=== PATIENT | male | born 1950 | race Caucasian/White ===

== ENCOUNTER → 2017-08-06 09:51 | Outpatient (CLI) | payer MEDICARE, OTHER, SELFPAY ==
[2017-08-06 10:28] LABS: Hematocrit 46.8 % (40-54); Hemoglobin 15.9 g/dl (13.0-16.5); Mean Corpuscular Hgb 31.4 pg (27.0-32.0); Mean Corpuscular Volume 92.3 fL (80-94); Mean Platelet Vol. 10.4 fl (6.2-12.0); Platelet Count 246 K/mm3 (150-450); RBC Distribution Width SD 43.1 fl (35.1-43.9); Red Blood Count 5.07 M/mm3 (4.6-6.2); Scan Indicated on CBC? Y/N NO; White Blood Count 6.9 K/mm3 (4.4-11.0)
[2017-08-06 10:41] LABS: Hemoglobin A1c 7.8 % (4.2-6.3)
[2017-08-06 10:51] LABS: Albumin, Serum 3.3 g/dL (3.2-5.0); BUN 24 mg/dL (7-18); BUN/Creat Ratio 13.8 RATIO (10-20); Calcium,Total 9.2 mg/dL (8.5-10.1); Chloride 103 mmol/L (98-107); Creatinine, Serum 1.74 mg/dL (0.70-1.30); EST Glomerular Filtration Rate 42 mL/min (>60); Est Glom Filt Rate - Afr Amer 50 mL/min (>60); Glucose 224 mg/dL (74-106); Magnesium 2.1 mg/dL (1.6-2.6); Phosphorus 2.4 mg/dL (2.5-4.9); Potassium 4.4 mmol/L (3.5-5.1); Sodium Level 140 mmol/L (136-145)
[2017-08-06 11:09] LABS: Microalbumin:Creatinine Ratio 880.4 mg/g CRE (<30 mg/g CRE)
[2017-08-07 10:04] LABS: PTHIN 50.9 pg/mL (18.4-80.1)
== END ==
PROVIDERS: Visit Provider Internal Medicine Nephrology
DX: E11.21 Type 2 diabetes mellitus with diabetic nephropathy (principal); N18.3 Chronic kidney disease, stage 3 (moderate); N25.81 Secondary hyperparathyroidism of renal origin
CPT/HCPCS: 36415; 80069; 82043; 82306; 82570; 83036; 83735; 83970; 85027

== ENCOUNTER → 2017-12-28 09:47 | Outpatient (CLI) | payer MEDICARE, OTHER, SELFPAY ==
[2017-12-28 10:55] LABS: Hematocrit 47.1 % (40-54); Hemoglobin 15.3 g/dl (13.0-16.5); Mean Corp Hgb Conc 32.5 g/gl (32-36); Mean Corpuscular Volume 92.4 fL (80-94); Mean Platelet Vol. 10.5 fl (6.2-12.0); Platelet Count 172 K/mm3 (150-450); RBC Distribution Width CV 13.4 % (11.6-14.6); RBC Distribution Width SD 45.2 fl (35.1-43.9); White Blood Count 5.3 K/mm3 (4.4-11.0)
[2017-12-28 10:57] LABS: Scan Indicated on CBC? Y/N NO
[2017-12-28 12:54] LABS: Albumin, Serum 3.3 g/dL (3.2-5.0); BUN 26 mg/dL (7-18); Calcium,Total 8.9 mg/dL (8.5-10.1); Chloride 105 mmol/L (98-107); Creatinine, Serum 1.86 mg/dL (0.70-1.30); EST Glomerular Filtration Rate 39 mL/min (>60); Est Glom Filt Rate - Afr Amer 47 mL/min (>60); Glucose 122 mg/dL (74-106); Potassium 4.2 mmol/L (3.5-5.1); Sodium Level 142 mmol/L (136-145)
[2017-12-28 13:31] LABS: Protein, Urine (Random) 86.7 mg/dL (<11.9); Protein:Creat Ratio 423 mg/g CRE (0-200)
== END ==
PROVIDERS: Visit Provider Internal Medicine Nephrology
DX: N18.3 Chronic kidney disease, stage 3 (moderate) (principal)
CPT/HCPCS: 36415; 80069; 82043; 82570; 84156; 85027

== ENCOUNTER → 2018-06-28 09:33 | Outpatient (CLI) | payer MEDICARE, OTHER, SELFPAY ==
[2018-06-28 10:39] LABS: PTHIN 78.4 pg/mL (18.4-80.1)
[2018-06-28 10:44] LABS: Protein, Urine (Random) 95.1 mg/dL (<11.9); Protein:Creat Ratio 1388 mg/g CRE (0-200)
[2018-06-28 10:56] LABS: Vitamin D,25 Hydroxy 18.1 ng/mL (29.95-100.01)
[2018-06-28 11:00] LABS: Albumin, Serum 3.4 g/dL (3.2-5.0); BUN 31 mg/dL (7-18); BUN/Creat Ratio 15.5 RATIO (10-20); Calcium,Total 8.9 mg/dL (8.5-10.1); Chloride 104 mmol/L (98-107); EST Glomerular Filtration Rate 35 mL/min (>60); Est Glom Filt Rate - Afr Amer 43 mL/min (>60); Glucose 251 mg/dL (74-106); Phosphorus 2.2 mg/dL (2.5-4.9); Potassium 4.4 mmol/L (3.5-5.1); Sodium Level 136 mmol/L (136-145)
[2018-06-28 11:10] LABS: Hematocrit 49.4 % (40-54); Hemoglobin 16.7 g/dl (13.0-16.5); Mean Corp Hgb Conc 33.8 g/gl (32-36); Mean Corpuscular Hgb 30.6 pg (27.0-32.0); Mean Corpuscular Volume 90.6 fL (80-94); Mean Platelet Vol. 10.6 fl (6.2-12.0); Platelet Count 173 K/mm3 (150-450); RBC Distribution Width CV 12.8 % (11.6-14.6); Red Blood Count 5.45 M/mm3 (4.6-6.2); White Blood Count 5.1 K/mm3 (4.4-11.0)
[2018-06-28 11:12] LABS: Scan Indicated on CBC? Y/N NO
== END ==
PROVIDERS: Referring Provider Internal Medicine Nephrology; Visit Provider Internal Medicine Nephrology
DX: N18.3 Chronic kidney disease, stage 3 (moderate) (principal); N25.81 Secondary hyperparathyroidism of renal origin
CPT/HCPCS: 36415; 80069; 82306; 82570; 83970; 84156; 85027

== ENCOUNTER 2018-08-27 14:59 | Emergency (ER) | payer MEDICARE, OTHER, SELFPAY ==
[2018-08-27 15:00] VITALS: BP 216/98; PULSE 85; RESP 16; TEMP 36.4; O2SAT 97; BMI 43.0
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
--- NOTE | 2018-08-27 15:22 | ED.DEP ---
ED Disposition - Plan for ED Patient: Instructions: ED Burn Thermal D 1st 2nd Dressing Prescriptions: Bacitracin 30 gm TP TID #1 oint...g. [facility] [[facility] - [facility] ([facility] [GROUP OF PHYSICIANS] - Additional Instructions: Call Burn Center for appointment at
--- NOTE | 2018-08-27 15:28 | ED.DEP ---
ED Disposition - Plan for ED Patient: Instructions: ED Burn Thermal D 1st 2nd Dressing Prescriptions: Cephalexin [Keflex] 500 mg PO Q6 #28 cap Bacitracin 30 gm TP TID #1 oint...g. Referrals: [facility] ([facility] [GROUP OF PHYSICIANS] - [facility],[place] [Primary Care Provider] - Additional Instructions: Call Burn Center for appointment at
--- NOTE | 2018-08-27 15:29 | DCINST.ED_ITS ---
ED Disposition - Plan for ED Patient: Instructions: ED Burn Thermal D 1st 2nd Dressing Prescriptions: Cephalexin [Keflex] 500 mg PO Q6 #28 cap Bacitracin 30 gm TP TID #1 oint...g. Referrals: [facility] Center ([facility]),[facility] [GROUP OF PHYSICIANS] - [facility],[place] [Primary Care Provider] - Additional Instructions: Call Burn Center for appointment at
[2018-08-27] MEDS: Cephalexin 250 MG Capsule 500 MG PO (15:33)
[2018-08-27] MEDS: Diphth,Pertuss(Acell),Tet Vac 0.5 ML Vial IM (15:33)
== END 2018-08-27 15:35 | disposition home or self-care (01) ==
LOC: ED 15:27
PROVIDERS: Emergency Provider Emergency Medicine
DX: T20.29XA Burn of second degree of multiple sites of head, face, and neck, initial encounter (principal); T31.0 Burns involving less than 10% of body surface; W40.1XXA Explosion of explosive gases, initial encounter; Y93.89 Activity, other specified; Y92.9 Unspecified place or not applicable; I10 Essential (primary) hypertension; E11.9 Type 2 diabetes mellitus without complications; Z79.4 Long term (current) use of insulin; Z79.899 Other long term (current) drug therapy
CPT/HCPCS: 90471; 90715; 99282

== ENCOUNTER 2018-09-21 12:34 | Emergency (ER) | payer MEDICARE, OTHER, SELFPAY ==
[2018-09-21 12:35] VITALS: BP 169/86; PULSE 103; RESP 16; TEMP 36.7; O2SAT 94; BMI 44.3
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
--- NOTE | 2018-09-21 16:40 | ED.DEP ---
ED Disposition - Plan for ED Patient: Disposition: Home or Assisted Living Instructions: ED Laceration Ext Sutr Stap Tape Referrals: [facility] [Primary Care Provider] - 10-14 Days suture removal Additional Instructions: Elevate the leg to decrease swelling. Keep the laceration clean. May shower but dried off thoroughly when done. Clean at least twice daily with soap and water or peroxide water. Apply antibiotic ointment twice daily. Watch for any signs of infection such as pus, redness, fever or red streaks. Suture removal in 10 to 14 days. Follow-up with wound care
[2018-09-21 16:53] VITALS: BP 165/81; PULSE 83; RESP 16; O2SAT 97
== END 2018-09-21 16:56 | disposition home or self-care (01) ==
PROVIDERS: Emergency Provider Emergency Medicine
DX: S81.811A Laceration without foreign body, right lower leg, initial encounter (principal); W45.8XXA Other foreign body or object entering through skin, initial encounter; Y93.9 Activity, unspecified; Y92.79 Other farm location as the place of occurrence of the external cause; Y99.9 Unspecified external cause status; I89.0 Lymphedema, not elsewhere classified; R60.0 Localized edema; E11.9 Type 2 diabetes mellitus without complications; I10 Essential (primary) hypertension; N28.9 Disorder of kidney and ureter, unspecified; Z79.01 Long term (current) use of anticoagulants; Z79.4 Long term (current) use of insulin; Z79.899 Other long term (current) drug therapy; Z86.718 Personal history of other venous thrombosis and embolism
CPT/HCPCS: 12004; 99283

== ENCOUNTER → 2018-12-09 08:12 | Outpatient (CLI) | payer MEDICARE, OTHER, SELFPAY ==
[2018-12-09 09:49] LABS: Hemoglobin 13.6 g/dL (13.0-16.5); Mean Corp Hgb Conc 33.2 g/dL (32-36); Mean Corpuscular Hgb 30.5 pg (27.0-32.0); Mean Corpuscular Volume 91.9 fL (80-94); Mean Platelet Vol. 10.4 fl (6.2-12.0); Platelet Count 213 K/mm3 (150-450); RBC Distribution Width CV 12.6 % (11.6-14.6); RBC Distribution Width SD 42.3 fl (35.1-43.9); Red Blood Count 4.46 M/mm3 (4.6-6.2); White Blood Count 5.6 K/mm3 (4.4-11.0)
[2018-12-09 10:02] LABS: Protein:Creat Ratio 418 mg/g CRE (0-200)
[2018-12-09 10:24] LABS: Albumin, Serum 3.5 g/dL (3.2-5.0); BUN 33 mg/dL (7-18); BUN/Creat Ratio 20.1 RATIO (10-20); Calcium,Total 9.4 mg/dL (8.5-10.1); Chloride 105 mmol/L (98-107); Creatinine, Serum 1.64 mg/dL (0.70-1.30); EST Glomerular Filtration Rate 44 mL/min (>60); Est Glom Filt Rate - Afr Amer 54 mL/min (>60); Glucose 114 mg/dL (74-106); Phosphorus 3.5 mg/dL (2.5-4.9); Potassium 4.2 mmol/L (3.5-5.1); Sodium Level 140 mmol/L (136-145)
[2018-12-09 10:39] LABS: PTHIN 58.1 pg/mL (18.4-80.1); Vitamin D,25 Hydroxy 31.6 ng/mL (29.95-100.01)
== END ==
PROVIDERS: Referring Provider Internal Medicine Nephrology; Visit Provider Internal Medicine Nephrology
DX: N18.3 Chronic kidney disease, stage 3 (moderate) (principal)
CPT/HCPCS: 36415; 80069; 82306; 82570; 83970; 84156; 85027

== ENCOUNTER → 2019-07-07 08:22 | Outpatient (CLI) | payer MEDICARE, OTHER, SELFPAY ==
[2019-07-07 09:13] LABS: Hemoglobin 15.4 g/dL (13.0-16.5); Mean Corp Hgb Conc 32.1 g/dL (32-36); Mean Corpuscular Hgb 29.6 pg (27.0-32.0); Mean Corpuscular Volume 92.1 fL (80-94); Mean Platelet Vol. 9.9 fl (6.2-12.0); Platelet Count 201 K/mm3 (150-450); RBC Distribution Width CV 12.8 % (11.6-14.6); RBC Distribution Width SD 42.8 fl (35.1-43.9); Red Blood Count 5.21 M/mm3 (4.6-6.2); White Blood Count 6.5 K/mm3 (4.4-11.0)
[2019-07-07 09:32] LABS: Protein, Urine (Random) < 6.0 mg/dL (<11.9)
[2019-07-07 09:33] LABS: Albumin, Serum 3.7 g/dL (3.2-5.0); BUN 31 mg/dL (7-18); Calcium,Total 9.5 mg/dL (8.5-10.1); Chloride 107 mmol/L (98-107); Creatinine, Serum 2.21 mg/dL (0.70-1.30); EST Glomerular Filtration Rate 31 mL/min (>60); Est Glom Filt Rate - Afr Amer 38 mL/min (>60); Glucose 181 mg/dL (74-106); Phosphorus 3.6 mg/dL (2.5-4.9); Potassium 4.6 mmol/L (3.5-5.1); Sodium Level 141 mmol/L (136-145)
[2019-07-07 09:38] LABS: Vitamin D,25 Hydroxy 27.9 ng/mL
== END ==
PROVIDERS: Referring Provider Internal Medicine Nephrology; Visit Provider Internal Medicine Nephrology
DX: N18.3 Chronic kidney disease, stage 3 (moderate) (principal); N25.81 Secondary hyperparathyroidism of renal origin
CPT/HCPCS: 36415; 80069; 82306; 82570; 83970; 84156; 85027

== ENCOUNTER → 2020-01-12 09:03 | Outpatient (CLI) | payer MEDICARE, OTHER, SELFPAY ==
[2020-01-12 10:03] LABS: Anion Gap 3 (5-15); BUN 33 mg/dL (7-18); BUN/Creat Ratio 16.6 RATIO (10-20); Calcium,Total 9.1 mg/dL (8.5-10.1); Chloride 108 mmol/L (98-107); Creatinine, Serum 1.99 mg/dL (0.70-1.30); EST Glomerular Filtration Rate 35 mL/min (>60); Est Glom Filt Rate - Afr Amer 43 mL/min (>60); Glucose 125 mg/dL (74-106); Potassium 4.5 mmol/L (3.5-5.1); Sodium Level 140 mmol/L (136-145)
== END ==
PROVIDERS: Referring Provider Internal Medicine Nephrology; Visit Provider Internal Medicine Nephrology
DX: N18.3 Chronic kidney disease, stage 3 (moderate) (principal)
CPT/HCPCS: 36415; 80048

== ENCOUNTER → 2020-07-06 11:58 | Outpatient (CLI) | payer MEDICARE, OTHER, SELFPAY ==
[2020-07-06 12:41] LABS: Protein, Urine (Random) 31.4 mg/dL (<11.9); Protein:Creat Ratio 957 mg/g CRE (0-200)
[2020-07-06 12:55] LABS: Anion Gap 6 (5-15); BUN 29 mg/dL (7-18); BUN/Creat Ratio 17.5 RATIO (10-20); Calcium,Total 9.6 mg/dL (8.5-10.1); Chloride 104 mmol/L (98-107); Creatinine, Serum 1.66 mg/dL (0.70-1.30); EST Glomerular Filtration Rate 44 mL/min (>60); Est Glom Filt Rate - Afr Amer 53 mL/min (>60); Glucose 132 mg/dL (74-106); Potassium 4.3 mmol/L (3.5-5.1); Sodium Level 139 mmol/L (136-145)
== END ==
PROVIDERS: Referring Provider Internal Medicine Nephrology; Visit Provider Internal Medicine Nephrology
DX: N18.30 Chronic kidney disease, stage 3 unspecified (principal)
CPT/HCPCS: 36415; 80048; 82570; 84156

== ENCOUNTER 2020-12-09 18:47 | Emergency (ER) | payer OTHER, MEDICARE, SELFPAY ==
[2020-12-09 18:48] VITALS: BP 192/88; PULSE 90; RESP 20; TEMP 37.2; O2SAT 96; BMI 41.1
--- NOTE | 2020-12-09 19:58 | EDS_ITS ---
HPI History of Present Illness Chief Complaint: Fatigue Informant: patient Narrative Narrative: Patient is a 70-year-old male who presents to the emergency department for sinus pressure and stuffy nose that he cannot breathe. He states that this is been a chronic issue for him over the past 2 months. He has been seeing his family doctor for this. He is on multiple medications for this. He does take [id number] sinus medications. He has been using oxymetazoline nasal spray. He states that this does temporarily help with the symptoms come right back. He has not been on any antibiotics for this. Denies fevers or chills. No chest pain or shortness of breath. He states that he has been feeling very fatigued because he is not able to sleep at night due to the congestion. He has been taking melatonin as well as Benadryl. This does not really help. Patient has not seen an ENT doctor for this. He denies any ear pain or sore throat. He states that the sinuses were very painful at the initial onset of this but has since become less painful. He is also complaining of elevated blood pressure intermittently. He states when he takes his medications his blood pressure does go down though.. [facility] Medical History (Updated 12/09/20 @ 19:[address] Arturo Pratt, ) DVT (deep venous thrombosis) Hypertension Home Medications Lantus Solostar U-100 Insulin 77 units SUBCUT QHS 11/03/13 [History Last Taken 12/20/13] insulin lispro [Humalog KwikPen Insulin] 20 units SQ ACHS 11/03/13 [History Last Taken 12/21/13 08:00] tamsulosin 0.4 mg PO QHS 11/03/13 [History Last Taken 12/20/13] amlodipine 10 mg PO DAILY 12/09/20 [History Last Taken Unknown] amoxicillin-pot clavulanate [Augmentin] 1 tab PO BID 10 Days #20 tab 12/09/20 [Rx Last Taken Unknown] carvedilol 25 mg PO Q12H 12/09/20 [History Last Taken Unknown] cholecalciferol (vitamin D3) [Vitamin D3] 50 mcg PO DAILY 12/09/20 [History Last Taken Unknown] clonidine HCl 0.2 mg PO BID 12/09/20 [History Last Taken Unknown] ezetimibe 10 mg PO DAILY 12/09/20 [History Last Taken Unknown] fluticasone propionate 1 spray INTRANASAL Q12H 12/09/20 [History Last Taken Unknown] furosemide 40 mg PO DAILY 12/09/20 [History Last Taken Unknown] hydrocodone-acetaminophen [Vicodin 5-300 mg Tablet] 1 tab PO Q6H PRN PRN 12/09/20 [History Last Taken Unknown] lisinopril 40 mg PO DAILY 12/09/20 [History Last Taken Unknown] omega-3 fatty acids [[place] 3] 1,000 mg PO DAILY 12/09/20 [History Last Taken Unknown] oxymetazoline 2 spray INTRANASAL Q12H PRN 12/09/20 [History Last Taken Unknown] [id number]-[id number] [Tylenol Sinus Severe] 2 tab PO Q4H PRN 12/09/20 [History Last Taken Unknown] pravastatin 40 mg PO DAILY 12/09/20 [History Last Taken Unknown] rivaroxaban 20 mg PO DAILY 12/09/20 [History Last Taken Unknown] spironolactone 12.5 mg PO DAILY 12/09/20 [History Last Taken Unknown] Allergy/AdvReac Type Severity Reaction Status Date / Time No Known Allergies Allergy Verified 12/09/20 18:50 Social History Smoking Status: Unknown if ever smoked ROS ROS ED Constitutional Constitutional ED: Reports other Details: Fatigue ; Denies chills or fever(s) Eyes Eyes: Denies change in vision ENT ENT ED: Reports other Details: Sinus congestion ; Denies ear pain, epistaxis, rhinorrhea or sore throat Cardiovascular Cardiovascular: Denies chest pain or palpitations Respiratory/Chest Respiratory/Chest: Denies cough or dyspnea Gastrointestinal Gastrointestinal: Denies abdominal pain, diarrhea, nausea or vomiting Musculoskeletal Musculoskeletal: Denies back pain or neck pain Integumentary Denies rash Neurologic Neurologic: Denies dizziness, headache(s) or weakness EXAM Physical Exam Const Vital Signs: 12/09/20 18:48 12/09/20 19:36 Temperature 99.0 F Temperature Source Temporal Pulse Rate 90 Respiratory Rate 20 H Respiratory Effort Non-Labored Respiratory Pattern Normal Blood Pressure 192/88 H Blood Pressure Mean 122 Pulse Ox 96 Oxygen Delivery Method Room Air Positive well nourished and well developed General Appearance ED: well developed and NAD HEENT Reports normocephalic, head/scalp atraumatic, TM's clear and moist mucous membranes HEENT Narrative: No sinus tenderness. He does have nasal congestion. Negative for tenderness Tympanic Membrane ED: Yes TM's clear Eyes PERRL and EOMs intact bilaterally Neck no lymphadenopathy and supple General: Negative for tenderness Chest Wall inspection of chest normal Resp normal respiratory effort and clear to auscultation bilaterally Auscultation: Negative for rales, rhonchi or wheezes Cardio regular rate, regular rhythm and no murmurs GI normal to inspection, nondistended, normoactive bowel sounds and non-tender Palpation: soft; Negative for guarding or rebound tenderness present Extremity normal to inspection General Extremety ED: Negative for edema or tenderness General Extremity: Negative for edema Neuro CN's II-XII intact bilaterally and no sensory deficits noted Sensorium / Orientation: alert Motor Exam: strength 5/5 throughout Psych mental status grossly normal Skin no rashes or lesions noted MDM MDM MDM Narrative Medical decision making narrative: Patient presents to the ED for sinus pressure, swelling in his face and having difficulty breathing because of this. He states that he has not been sleeping very well and it has been making him fatigued. On arrival to the ED he is hypertensive but otherwise normal vital signs. He is in no acute distress. Is a benign physical exam except for the congestion. Says he is never been on an antibiotic this is been ongoing for such a long time will place him on Augmentin. Did make a referral for ENT. He is already on multiple medications for this. I do not recommend any acute changes on his blood pressure medicines as he is acute problem going on. Return precautions are reviewed with him. He otherwise will be discharged home in stable condition. Return precautions reviewed with him. He understands and is agreeable this plan. All questions were answered. Discharge Plan Triage Chief Complaint: Fatigue ED Provider: Arturo Pratt Dx/Rx/DC Orders Clinical Impression: Sinusitis, Fatigue, Elevated blood pressure, situational Instructions: Causes of Sinusitis, Hypertension Dc Prescriptions: New amoxicillin-pot clavulanate [Augmentin] 875-125 mg tablet 1 tab PO BID 10 Days Qty: 20 RF: 0 No Action insulin lispro [Humalog KwikPen Insulin] 100 UNIT/ML insulin pen 20 units SQ ACHS RF: 0 tamsulosin 0.4 MG capsule 0.4 mg PO QHS RF: 0 Lantus Solostar U-100 Insulin 100 UNITS/ML insulin pen 77 units subcut QHS RF: 0 furosemide 40 mg Tablet 40 mg PO DAILY RF: 0 carvedilol 25 mg Tablet 25 mg PO Q12H RF: 0 pravastatin 40 mg Tablet 40 mg PO DAILY RF: 0 spironolactone 25 mg Tablet 12.5 mg PO DAILY RF: 0 amlodipine 10 mg Tablet 10 mg PO DAILY RF: 0 lisinopril 40 mg Tablet 40 mg PO DAILY RF: 0 fluticasone propionate 50 mcg/actuation [place],Suspension 1 spray INTRANASAL Q12H RF: 0 ezetimibe 10 mg Tablet 10 mg PO DAILY RF: 0 [place] 3 Capsule 1,000 mg PO DAILY RF: 0 oxymetazoline 0.05 % [place],Non-Aerosol 2 spray INTRANASAL Q12H PRN (Reason: Congestion) RF: 0 Tylenol Sinus Severe 5-325-200 mg Tablet 2 tab PO Q4H PRN (Reason: Congestion) RF: 0 cholecalciferol (vitamin D3) [Vitamin D3] 50 mcg (2,000 unit) Capsule 50 mcg PO DAILY RF: 0 rivaroxaban 20 mg Tablet 20 mg PO DAILY RF: 0 clonidine HCl 0.1 MG tablet 0.2 mg PO BID RF: 0 hydrocodone-acetaminophen [Vicodin 5-300 mg Tablet] 1 EACH tablet 1 tab PO Q6H PRN PRN (Reason: Pain) RF: 0 [facility] Referrals: Ze Sarkar MD [STAFF PHYSICIAN] - [facility] soon as possible [facility] [Primary Care Provider] - Disposition Disposition: Home, Self Care Discharge Date/Time: 12/09/20 20:24
[2020-12-09] MEDS: Amox/Clavulanate 875 MG Tablet PO (20:19)
[2020-12-09 20:20] VITALS: PULSE 93; RESP 18; O2SAT 96
== END 2020-12-09 20:24 | disposition home or self-care (01) ==
LOC: ED 20:02
PROVIDERS: Emergency Provider Emergency Medicine
DX: J32.9 Chronic sinusitis, unspecified (principal); R53.83 Other fatigue; I10 Essential (primary) hypertension; Z79.01 Long term (current) use of anticoagulants; Z79.4 Long term (current) use of insulin; Z79.899 Other long term (current) drug therapy; Z86.718 Personal history of other venous thrombosis and embolism
CPT/HCPCS: 99283

== ENCOUNTER → 2021-01-28 08:44 | Outpatient (CLI) | payer MEDICARE, OTHER, SELFPAY ==
[2021-01-28 10:37] LABS: Protein, Urine (Random) 9.3 mg/dL (<11.9); Protein:Creat Ratio 412 mg/g CRE (0-200)
[2021-01-28 11:02] LABS: Anion Gap 4 (5-15); BUN 19 mg/dL (7-18); BUN/Creat Ratio 12.8 RATIO (10-20); Calcium,Total 9.5 mg/dL (8.5-10.1); Chloride 105 mmol/L (98-107); Creatinine, Serum 1.49 mg/dL (0.70-1.30); EST Glomerular Filtration Rate 49 mL/min (>60); Est Glom Filt Rate - Afr Amer 60 mL/min (>60); Glucose 119 mg/dL (74-106); Potassium 4.7 mmol/L (3.5-5.1); Sodium Level 138 mmol/L (136-145)
== END ==
PROVIDERS: Referring Provider Internal Medicine Nephrology; Visit Provider Internal Medicine Nephrology
DX: N18.32 Chronic kidney disease, stage 3b (principal)
CPT/HCPCS: 36415; 80048; 82570; 84156

== ENCOUNTER 2021-07-10 09:22 | Outpatient (CLI) | payer MEDICARE, OTHER, SELFPAY ==
[2021-07-10 10:02] LABS: Protein, Urine (Random) 20.8 mg/dL (<11.9); Protein:Creat Ratio 579 mg/g CRE (0-200)
[2021-07-10 10:10] LABS: Anion Gap 4 (5-15); BUN 29 mg/dL (7-18); BUN/Creat Ratio 15.4 RATIO (10-20); Calcium,Total 9.7 mg/dL (8.5-10.1); Chloride 105 mmol/L (98-107); Creatinine, Serum 1.88 mg/dL (0.70-1.30); EST Glomerular Filtration Rate 38 mL/min (>60); Est Glom Filt Rate - Afr Amer 46 mL/min (>60); Glucose 152 mg/dL (74-106); Sodium Level 141 mmol/L (136-145)
== END 2021-07-10 23:59 | disposition home or self-care (01) ==
LOC: LAB 09:24
PROVIDERS: Referring Provider Internal Medicine Nephrology; Visit Provider Internal Medicine Nephrology
DX: N18.32 Chronic kidney disease, stage 3b (principal)
CPT/HCPCS: 36415; 80048; 82570; 84156

== ENCOUNTER → 2022-01-07 | Outpatient (CLI) | payer MEDICARE, OTHER, SELFPAY ==
[2022-01-07 10:07] LABS: Protein, Urine (Random) 29.4 mg/dL (<11.9); Protein:Creat Ratio 237 mg/g CRE (0-200)
[2022-01-07 10:23] LABS: Anion Gap 4 (5-15); BUN 30 mg/dL (7-18); BUN/Creat Ratio 14.3 RATIO (10-20); Chloride 105 mmol/L (98-107); EST Glomerular Filtration Rate 33 mL/min (>60); Est Glom Filt Rate - Afr Amer 40 mL/min (>60); Glucose 198 mg/dL (74-106); Potassium 4.4 mmol/L (3.5-5.1); Sodium Level 139 mmol/L (136-145)
== END | disposition home or self-care (01) ==
LOC: LAB 09:20
PROVIDERS: Visit Provider Nurse Practitioner Adult Health
DX: N18.32 Chronic kidney disease, stage 3b (principal)
CPT/HCPCS: 36415; 80048; 82570; 84156

== ENCOUNTER → 2022-07-07 | Outpatient (CLI) | payer MEDICARE, OTHER, SELFPAY ==
[2022-07-07 10:27] LABS: Protein, Urine (Random) 26.5 mg/dL (<11.9); Protein:Creat Ratio 227 mg/g CRE (0-200)
[2022-07-07 10:40] LABS: PTHIN 75.2 pg/mL (18.4-80.1)
[2022-07-07 10:44] LABS: Vitamin D,25 Hydroxy 39.5 ng/mL
[2022-07-07 10:52] LABS: Anion Gap 6 (5-15); BUN 45 mg/dL (7-18); BUN/Creat Ratio 22.5 RATIO (10-20); Calcium,Total 9.7 mg/dL (8.5-10.1); Chloride 103 mmol/L (98-107); EST Glomerular Filtration Rate 35 mL/min (>60); Est Glom Filt Rate - Afr Amer 42 mL/min (>60); Glucose 257 mg/dL (74-106); Potassium 4.8 mmol/L (3.5-5.1); Sodium Level 137 mmol/L (136-145)
== END | disposition home or self-care (01) ==
LOC: LAB 08:36
PROVIDERS: Referring Provider Internal Medicine Nephrology; Visit Provider Internal Medicine Nephrology
DX: N18.32 Chronic kidney disease, stage 3b (principal)
CPT/HCPCS: 36415; 80048; 82306; 82570; 83970; 84156

== ENCOUNTER → 2023-01-01 | Outpatient (CLI) | payer MEDICARE, OTHER, SELFPAY ==
[2023-01-01 08:53] LABS: Protein, Urine (Random) 18.6 mg/dL (<11.9); Protein:Creat Ratio 159 mg/g CRE (0-200)
[2023-01-01 09:11] LABS: Anion Gap 4 (5-15); BUN 29 mg/dL (7-18); BUN/Creat Ratio 13.9 RATIO (10-20); Calcium,Total 9.1 mg/dL (8.5-10.1); Chloride 108 mmol/L (98-107); Creatinine, Serum 2.08 mg/dL (0.70-1.30); EST Glomerular Filtration Rate 33 mL/min (>60); Est Glom Filt Rate - Afr Amer 40 mL/min (>60); Glucose 173 mg/dL (74-106); Potassium 5.7 mmol/L (3.5-5.1); Sodium Level 137 mmol/L (136-145)
== END | disposition home or self-care (01) ==
LOC: LAB 08:22
PROVIDERS: Referring Provider Internal Medicine Nephrology; Visit Provider Internal Medicine Nephrology
DX: N18.32 Chronic kidney disease, stage 3b (principal)
CPT/HCPCS: 36415; 80048; 82570; 84156

== ENCOUNTER → 2023-07-08 | Outpatient (CLI) | payer MEDICARE, OTHER, SELFPAY ==
[2023-07-08 11:32] LABS: Hematocrit 40.8 % (40-54); Hemoglobin 13.1 g/dL (13.0-16.5); Mean Corp Hgb Conc 32.1 g/dL (32-36); Mean Corpuscular Hgb 29.6 pg (27.0-32.0); Mean Corpuscular Volume 92.1 fL (80-94); Mean Platelet Vol. 9.9 fl (6.2-12.0); Platelet Count 202 K/mm3 (150-450); RBC Distribution Width CV 12.2 % (11.6-14.6); RBC Distribution Width SD 41.1 fl (35.1-43.9); Red Blood Count 4.43 M/mm3 (4.6-6.2); White Blood Count 5.4 K/mm3 (4.4-11.0)
[2023-07-08 11:55] LABS: Protein, Urine (Random) 8.5 mg/dL (<11.9); Protein:Creat Ratio 172 mg/g CRE (0-200)
[2023-07-08 12:12] LABS: PTHIN 94.3 pg/mL (18.4-80.1)
[2023-07-08 12:47] LABS: Albumin, Serum 3.5 g/dL (3.2-5.0); BUN 35 mg/dL (7-18); BUN/Creat Ratio 17.9 RATIO (10-20); Calcium,Total 9.6 mg/dL (8.5-10.1); Chloride 108 mmol/L (98-107); Creatinine, Serum 1.95 mg/dL (0.70-1.30); EST Glomerular Filtration Rate 36 mL/min (>60); Est Glom Filt Rate - Afr Amer 43 mL/min (>60); Glucose 204 mg/dL (74-106); Phosphorus 2.9 mg/dL (2.5-4.9); Sodium Level 137 mmol/L (136-145)
--- OUTSIDE RECORDS SUMMARY | 2023-07-08 21:09 | XMS RPT_ITS | CCD ---
Author Name Unknown Address [address] [place] [address] Organization [facility] Care Team Providers Care Regulatory Intern Name Role Phone [place] Primary Care Pro vider Unavailable Allergies Allergy Classification Reported Allergen(s) Allergy Type Date of Onset Reaction(s) Facility (1 source) atorvastatin Drug Allergy 08-09-2018 Myalgia [facility] (1 source) Lovastatin Drug Allergy 09-28-2020 Myalgia [facility] (1 source) NIFEdipine Drug Allergy 03-23-2019 Myalgia [facility] (1 source) rosuvastatin Drug Allergy 08-09-2018 Myalgia [facility] Medications Completed/Discontinued Medications Medication Drug Class(es) Dates Sig (Normalized) Sig (Original) acetaminophen 325 mg oral tablet (1 source) Start: 06-20-2015 acetaminophen (TYLENOL) 325 mg tablet TAKE BY MOUTH PRN 0 06/20/2015 Active Problems Active Problems Problem Classification Problem Date Documented Da te Episodic/Chronic Cataract (4 sources) Pseudophakia of right eye; Translations: [Presence of intraocular lens] Onset: 02-11-2014 Chronic Diabetes mellitus without complication (2 sources) Diabetes mellitus type 2 without retinopathy; Translations: [Type 2 diabetes mellitus without complications] Onset: 08-25-2014 Chronic Essential hypertension (1 source) Essential hypertension; Translations: [Essential (primary) hypertension] Onset: 11-13-2016 11-13-2016 Chronic Inflammation; infection of eye (except that caused by tuberculosis or sexually transmitteddisease) (2 sources) Bilateral punctate keratitis of eyes; Translations: [Punctate keratitis, bilateral] Onset: 11-18-2017 Chronic Other eye disorders (1 source) Bilateral vitreous floaters; Translations: [Other vitreous opacities, bilateral] Onset: 04-04-2015 04-04-2015 Chronic Past or Other Problems Problem Classification Problem Date Documented Da te Episodic/Chronic Other eye disorders (1 source) Tear film insufficiency; Translations: [Dry eye syndrome of unspecified lacrimal gland] Onset: 04-04-2015 04-04-2015 Episodic Encounters Encounter Date Encounter Type Care Provider Facility Start: 12-04-2021 End: 12-04-2021 Patient encounter procedure Anant Pereyra MD Work Phone: Ophthalmology Procedures Date Procedure Procedure Detail Performing Clinician Start: 02-11-2014 History of laser assisted in situ keratomileusis S/P LASIK surgery of both eyes Anant Pereyra MD Work Phone: History of laser ass isted in situ keratomileusis S/P LASIK surgery of both eyes Anant Pereyra MD Work Phone: Plan of Treatment Date Care Activity Detail Author Start: 12-04-2022 Hepatitis C antibody , confirmatory test DILATED RETINAL EXAM [facility] Start: 01-09-2022 Influenza vaccination INFLUENZA (#1) [facility] Start: 08-26-2021 COVID-19 VACCINE (4 - Booster for Moderna series) COVID-19 VACCINE (4 - Booster for Moderna series) [facility] Start: 05-11-2021 ADVANCE DIRECTIVE DISCUSSION ADVANCE DIRECTIVE DISCUSSION [facility] Start: 1999 SHINGRIX VACCINE (1 of 2) SHINGRIX V ACCINE (1 of 2) [facility] Start: 1994 COLOGUARD (FIT-DNA) COLOGUARD (FIT-D NA) [facility] Start: 1994 Colonoscopy COLONOSCOPY [facility] Start: 1994 COLORECTAL CANCER SCREENING COLORECTAL CANCER SCREENING [facility] Start: [address] COLONOGRAPHY [facility] Start: 1994 FECAL OCCULT BLOOD FECAL OCCULT BLOO D [facility] Start: 1994 [facility] Start: 02-09-1968 Urine microalbumin profile DTAP,TDAP ,TD (1 - Tdap) [facility] Start: 1967 ANNUAL PCP TEAM ELECTRICAL LINE SPLICER KAR DISEASE VISIT ANNUAL PCP TEAM CHRONIC DISEASE VISIT [facility] Start: 1967 BP CONTROLLED (<130/80) BP CONTROLLE D (<130/80) [facility] Start: 1967 Hepatitis B surface antibody level LDL CHOLESTEROL [facility] Start: 1967 HEPATITIS C SCREENING HEPATITIS C SC REENING [facility] Start: 1961 Adult depression scr eening assessment DEPRESSION SCREENING [facility] Start: 1959 3 comp foot exam completed DIABETIC FOOT EXAM [facility] Start: 1959 Hepatitis B screening URINE AL BUMIN:CREATININE RATIO [facility] Start: 1955 PNEUMOCOCCAL: 65+ (1 - PCV) PNEUMOCOCCAL: 65+ (1 - PCV) [facility] Start: 1954 Hemoglobin A1c/Hemoglobin.total in Blood HBA1C [facility] Start: 1949 ABDOMINAL AORTIC ANE URYSM SCREENING ABDOMINAL AORTIC ANEURYSM SCREENING [facility] Payers Date Payer Category Payer Medicare MEDICARE MEDICAR E A AND B [id number] 2015-Present [phone] [address] [address] [place] [address] Medicare [id number] 2015 Private Health Insurance HU[employer]NA HU[employer]NA MEDICARE SUPPLEMENT [id number] 2015-Present [phone] [address] [address] [place] [address] Indemnity [id number] Social History Date Type Detail Facility Start: 02-11-[address] [facility] End: 05-11-1973 History of tobacco use Current smoker [facility] End: 05-11-1973 History of tobacco use Cigarette Smoker [facility] Start: 02-11-2014 Cigarettes smoked cu rrent (pack per day) - Reported 1 [facility] Start: 02-11-2014 Tobacco use and exposure Smoke less tobacco non-user [facility] Start: 12-04-2021 Alcohol intake Current non-dr food porter of alcohol (finding) [facility] Start: 1950 Sex Assigned At Not on file [facility] Start: 11-12-2021 End: 11-22-2021 Exposure to SARS-CoV-2 (event) Not sure [facility] Progress note 12-04-2021 Note Date & Type Note Facility 12-04-2021 Note HNO ID: [id number] Author: Anant Pereyra MD Service: ? Author Type: Physician Type: Progress Notes Filed: 12/04/2021 12:00 PM Note Text: Assessment and Plan 1. Type 2 diabetes mellitus without retinopathy (HCC) -no diabetic retinopathy both eyes 2. Punctate keratitis, bilateral -mild symptoms both eyes 3. S/P LASIK surgery of both eyes -happy with outcome 4. Pseudophakia of right eye -stable right eye 5. Combined forms of age-related cataract, left eye -early visual significance Plan: -Continue blood sugar and blood pressure control -artificial tears twice a day both eyes as needed -follow-up 1 year with dilated fundus exam, sooner as needed I have confirmed and edited as necessary the relevant ophthalmic history, ROS, and the neuro exam findings as obtained by others. I have seen and examined Reji Chan Jr.. I have discussed the case and the management of this patient's care with the Resident/Fellow, if applicable. I also have reviewed and agree with the assessment and plan as stated above and agree with all of its relevant components. Anant Pereyra MD [facility] History of Present illness Narrative 12-04-2021 Anant Pereyra MD - 12/04/2021 11:57 AM EDT Note Date & Type Note Facility 12-04-2021 History of Presen t illness Narrative Assessment and Plan 1. Type 2 diabetes mellitus without retinopathy (HCC) -no diabetic retinopathy both eyes 2. Punctate keratitis, bilateral -mild symptoms both eyes 3. S/P LASIK surgery of both eyes -happy with outcome 4. Pseudophakia of right eye -stable right eye 5. Combined forms of age-related cataract, left eye -early visual significance Plan: -Continue blood sugar and blood pressure control -artificial tears twice a day both eyes as needed -follow-up 1 year with dilated fundus exam, sooner as needed I have confirmed and edited as necessary the relevant ophthalmic history, ROS, and the neuro exam findings as obtained by others. I have seen and examined Reji Chan Jr.. I have discussed the case and the management of this patient's care with the Resident/Fellow, if applicable. I also have reviewed and agree with the assessment and plan as stated above and agree with all of its relevant components. Anant Pereyra MD documented in this encounter [facility] History of Past illness Narrative 08-25-2014 Note Date & Type Note Facility documented as of this encounter (statuses as of 12/04/2021) [facility] Evaluation note Note Date & Type Note Facility documented in this encounter [facility] Summary Purpose Family History No Family History Records Found Advance Directives No Advanced Directives Records Found Additional Source Comments Source Comments (unrecognize d section and content) In the event this informatio n is protected by the Federal Confidentiality of Alcohol and Drug Abuse Patient Records regulations: The Federal rules restrict any use of the information to criminally investigate or prosecute any alcohol or drug abuse patient.[facility] Reason for Visit (unrecogniz ed section and content) Care Teams (unrecognized sec tion and content) (unrecognized sect ion and content) No Status Records Found INFORMATION SOURCE (unrecogn ized section and content) FOR RECORDS PERTAINING TO PATIENTS WHO ARE OR HAVE BEEN ENROLLED IN A CHEMICAL DEPENDENCY/SUBSTANCEABUSE PROGRAM, SOME INFORMATION MAY BE OMITTED. This clinical summary was aggregated from multiple sources. Caution should be exercised in using it in the provision of clinical care. This summary normalizes information from multiple sources, and as a consequence, information in this document may materially change the coding, format and clinical context of patient data. In addition, data may be omitted in some cases. CLINICAL DECISIONS SHOULD BE BASED ON THE PRIMARY CLINICAL RECORDS. [email or web address] provides no warranty or guarantee of the accuracy or completeness of information in this document.
== END | disposition home or self-care (01) ==
PROVIDERS: Referring Provider Internal Medicine Nephrology; Visit Provider Internal Medicine Nephrology
DX: N18.32 Chronic kidney disease, stage 3b (principal); N25.81 Secondary hyperparathyroidism of renal origin
CPT/HCPCS: 36415; 80069; 82306; 82570; 83970; 84156; 85027